=== PATIENT | female | born 1985 | race Caucasian/White ===

== ENCOUNTER 2019-05-19 20:14 | Emergency (ER) | payer SELFPAY ==
--- NOTE | 2019-05-19 20:39 | ER ---
Nurse's Notes [facility] Name: Juanita Rhodes Age: 33 yrs Sex: Female : 1985 Arrival Date: 05/19/2019 Time: 20:19 Bed 23 Private MD: Diagnosis: Acute maxillary sinusitis Presentation: 05/19 20:29 Presenting complaint: Patient states: left side sinus pain since . Transition of ak1 care: patient was not received from another setting of care. Onset of symptoms is unknown. Risk Assessment: Do you want to hurt yourself or someone else? Patient reports no desire to harm self or others. Initial Sepsis Screen: Does the patient meet any 2 criteria? No. Patient's initial sepsis screen is negative. Does the patient have a suspected source of infection? No. Patient's initial sepsis screen is negative. Care prior to arrival: None. 20:29 Method Of Arrival: Ambulatory ak1 20:29 Acuity: DAVID 4 ak1 Triage Assessment: 20:30 General: Appears in no apparent distress. Behavior is calm, cooperative. 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 - Social history:: Smoking status: Patient/guardian denies using tobacco. - Ebola Screening: : No symptoms or risks identified at this time. Screenin:43 Abuse screen: Denies threats or abuse. Nutritional screening: No deficits noted. la1 Tuberculosis screening: No symptoms or risk factors identified. Fall Risk None identified. Assessment: 20:42 General: Appears in no apparent distress. Behavior is calm. Pain: Complains of pain in la1 left cheek. Neuro: Level of Consciousness is awake, alert, obeys commands. Cardiovascular: Capillary refill < 3 seconds Patient's skin is warm and dry. Respiratory: Airway is patent Respiratory effort is even, unlabored, Respiratory pattern is regular, symmetrical. GI: No signs and/or symptoms were reported involving the gastrointestinal system. : No signs and/or symptoms were reported regarding the genitourinary system. Vital Signs: 20:27 BP 133 / 85; Pulse 82; Resp 16; Temp 98.9(O); Pulse Ox 99% on R/A; Weight 124.74 kg ak1 (R); Height 5 ft. 7 in. (170.18 cm) (R); Pain 9/10; 20:27 Body Mass Index 43.07 (124.74 kg, 170.18 cm) ak1 ED Course: 20:19 Patient arrived in ED. tracie 20:21 Umesh Giles, RN is Primary Nurse. la1 20:26 Gordo Davis PA is PHCP. jr8 20:26 Casey London MD is Attending Physician. jr8 20:27 Arm band placed on Patient placed in an exam room, on a stretcher, on pulse oximetry, ak1 Patient notified of wait time. 20:30 Triage completed. ak1 20:43 Call light in reach. la1 20:43 No provider procedures requiring assistance completed. Patient did not have IV access la1 during this emergency room visit. Administered Medications: No medications were administered Outcome: 20:38 Discharge ordered by MD. jr8 20:43 Discharged to home ambulatory. la1 20:43 Condition: stable 20:43 Discharge instructions given to patient, Instructed on discharge instructions, follow up and referral plans. medication usage, Demonstrated understanding of instructions, follow-up care, medications, Prescriptions given X 1. 20:43 Patient left the ED. la1 Signatures: Darcie Alonso Josh, PA PA jrUmesh Nielsen RN RN la1 Michelle Coy RN RN ak1
--- NOTE | 2019-05-19 20:39 | EDPHYS ---
Physician Documentation [facility] Name: Juanita Rhodes Age: 33 yrs Sex: Female : 1985 Arrival Date: 05/19/2019 Time: 20:19 Bed 23 Private MD: ED Physician Casey London HPI: 05/19 20:44 This 33 yrs old Female presents to ER via Ambulatory with complaints of jr8 Facial pain. 20:44 Onset: The symptoms/episode began/occurred acutely, today. Associated signs and jr8 symptoms: Pertinent positives: earache, fever, headache. Modifying factors: The patient symptoms are alleviated by nothing, the patient symptoms are aggravated by nothing. The patient has not experienced similar symptoms in the past. The patient has not recently seen a physician. Patient stated that she has been having sinus pain, drainage, and congestion for over 4 days. Thought she was getting over it but now much worse today . 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 - Social history:: Smoking status: Patient/guardian denies using tobacco. - Ebola Screening: : No symptoms or risks identified at this time. ROS: 20:44 Eyes: Negative for injury, pain, redness, and discharge, Neck: Negative for injury, jr8 pain, and swelling, Cardiovascular: Negative for chest pain, palpitations, and edema, Respiratory: Negative for shortness of breath, cough, wheezing, and pleuritic chest pain, Abdomen/GI: Negative for abdominal pain, nausea, vomiting, diarrhea, and constipation, Back: Negative for injury and pain, MS/Extremity: Negative for injury and deformity, Skin: Negative for injury, rash, and discoloration, Neuro: Negative for headache, weakness, numbness, tingling, and seizure. 20:44 ENT: Positive for rhinorrhea, sinus congestion, sinus pain. Exam: 20:44 Eyes: Pupils equal round and reactive to light, extra-ocular motions intact. Lids and jr8 lashes normal. Conjunctiva and sclera are non-icteric and not injected. Cornea within normal limits. Periorbital areas with no swelling, redness, or edema. Neck: Trachea midline, no thyromegaly or masses palpated, and no cervical lymphadenopathy. Supple, full range of motion without nuchal rigidity, or vertebral point tenderness. No Meningismus. Cardiovascular: Regular rate and rhythm with a normal S1 and S2. No gallops, murmurs, or rubs. Normal PMI, no JVD. No pulse deficits. Respiratory: Lungs have equal breath sounds bilaterally, clear to auscultation and percussion. No rales, rhonchi or wheezes noted. No increased work of breathing, no retractions or nasal flaring. Abdomen/GI: Soft, non-tender, with normal bowel sounds. No distension or tympany. No guarding or rebound. No evidence of tenderness throughout. Back: No spinal tenderness. No costovertebral tenderness. Full range of motion. Skin: Warm, dry with normal turgor. Normal color with no rashes, no lesions, and no evidence of cellulitis. MS/ Extremity: Pulses equal, no cyanosis. Neurovascular intact. Full, normal range of motion. Neuro: Awake and alert, GCS 15, oriented to person, place, time, and situation. Cranial nerves II-XII grossly intact. Motor strength 5/5 in all extremities. Sensory grossly intact. Cerebellar exam normal. Normal gait. 20:44 Head/face: Sinus tenderness, that is moderate, is located over the left ethmoid sinus and left maxillary sinus. 20:44 ENT: Exam is negative for earache, ear discharge, TM abnormalities, enlarged tonsils, pharyngitis, Nose: External nose: no obvious acute abnormality, Nasal septum: is midline, Nasal mucosa: erythematous, moist, Turbinates: are swollen bilaterally. Vital Signs: 20:27 BP 133 / 85; Pulse 82; Resp 16; Temp 98.9(O); Pulse Ox 99% on R/A; Weight 124.74 kg ak1 (R); Height 5 ft. 7 in. (170.18 cm) (R); Pain 9/10; 20:27 Body Mass Index 43.07 (124.74 kg, 170.18 cm) ak1 MDM: 20:37 Patient medically screened. jr8 20:37 Data reviewed: vital signs, nurses notes, and as a result, I will discharge patient. jr8 Data interpreted: Pulse oximetry: on room air is 99 %. Interpretation: normal. Counseling: I had a detailed discussion with the patient and/or guardian regarding: the historical points, exam findings, and any diagnostic results supporting the discharge/admit diagnosis, the need for outpatient follow up, a family practitioner, to return to the emergency department if symptoms worsen or persist or if there are any questions or concerns that arise at home. Administered Medications: No medications were administered Disposition: 05/20 06:31 Co-signature as Attending Physician, Casey London MD I agree with the assessment and tw4 plan of care. Disposition: 05/19/19 20:38 Discharged to Home. Impression: Acute maxillary sinusitis. - Condition is Stable. - Discharge Instructions: Sinus Headache, Sinusitis, Adult. - Prescriptions for Augmentin 875- 125 mg Oral Tablet - take 1 tablet by ORAL route every 12 hours for 10 days; 20 tablet. - Medication Reconciliation Form, Thank You Letter, Antibiotic Education, Prescription Opioid Use form. - Follow up: Private Physician; When: 2 - 3 days; Reason: Recheck today's complaints, Continuance of care, Re-evaluation by your physician. - Problem is new. - Symptoms have improved. Signatures: Gordo Davis PA PA jr8 Umesh Giles RN RN la1 Michelle Coy RN RN ak1 Casey London MD MD tw4 Corrections: (The following items were deleted from the chart) 05/19 20:43 20:38 05/19/2019 20:38 Discharged to Home. Impression: Acute maxillary sinusitis. la1 Condition is Stable. Forms are Medication Reconciliation Form, Thank You Letter, Antibiotic Education, Prescription Opioid Use. Follow up: Private Physician; When: 2 - 3 days; Reason: Recheck today's complaints, Continuance of care, Re-evaluation by your physician. Problem is new. Symptoms have improved. jr8
== END 2019-05-19 20:43 | disposition home or self-care (01) ==
LOC: ER 20:14
DX: J01.00 Acute maxillary sinusitis, unspecified (principal)
CPT/HCPCS: 99283